=== PATIENT | male | born 1980 | race Caucasian/White ===

== ENCOUNTER 2018-02-25 09:14 | Emergency (ER) | payer OTHER ==
[2018-02-25 09:31] VITALS: BP 121/90; PULSE 76; TEMP 98.5; BMI 23.5
[2018-02-25] MEDS ORDERED: DIPHTH,PERTUSS(ACELL),TET 0.5 ML DISP.SYRIN IM ONE (10:04)
--- NOTE | 2018-02-25 10:08 | PDOC ---
History of Present Illness - General Chief Complaint: Puncture Wound Stated Complaint: INJURY Time Seen by Provider: 02/25/18 10:02 History Source: Patient Exam Limitations: No Limitations - History of Present Illness Initial Comments: 02/25/18 10:05 CHIEF COMPLAINT: Nail went into volar aspect of left fifth finger yesterday. HISTORY OF PRESENT ILLNESS: Patient is a 37-year-old male, no significant medical history currently on no medication presents for evaluation of swelling to left fifth finger patient reports yesterday was woodworking and a nail went into the dorsal surface of the left fifth finger he pulled the nail out immediately had pain to area with range of motion woke up this morning with swelling. Is requesting x-ray of the left fracture Occurred: reports: yesterday Severity: reports: moderate Upper Extremity Pain Location: left: 5th finger Past History - Past Medical History Allergies/Adverse Reactions: Allergies Allergy/AdvReac Type Severity Reaction Status Date / Time No Known Allergies Allergy Verified 02/25/18 09:26 Home Medications: Ambulatory Orders Cephalexin [Keflex] 500 mg PO QID #28 capsule 02/25/18 COPD: No Other medical history: DENIES. - Suicide/Smoking/Psychosocial Hx Smoking History: Never smoked Review of Systems - Review of Systems Constitutional: No: Symptoms Reported Respiratory: No: Symptoms reported Cardiac (ROS): No: Symptoms Reported Musculoskeletal: Yes: Joint Pain, Joint Swelling Integumentary: Yes: Erythema, Other (edema to left fifth finger. Good range of motion). No: Bruising Neurological: No: Paresthesia, Tingling, Tremors Hematologic/Lymphatic: No: Symptoms Reported All Other Systems: Reviewed and Negative *Physical Exam - Vital Signs Last Vital Signs Temp Pulse Resp BP Pulse Ox 98.5 F 76 19 121/90 100 02/25/18 09:26 02/25/18 09:26 02/25/18 09:26 02/25/18 09:26 02/25/18 09:26 - Physical Exam General Appearance: Yes: Appropriately Dressed. No: Apparent Distress Respiratory/Chest: positive: Lungs Clear, Normal Breath Sounds Cardiovascular: positive: Regular Rhythm, Regular Rate Musculoskeletal: negative: Decreased Range of Motion Extremity: positive: Swelling, Erythema (to left fifth finger) Integumentary: positive: Erythema, Swelling. negative: Ecchymosis, Bruising Neurologic: positive: Alert, Normal Mood/Affect ED Treatment Course - RADIOLOGY Radiology Studies Ordered: Category Date Time Status FINGER(S) LEFT [RAD] Stat Radiology 02/25/18 10:04 Ordered Medical Decision Making - Medical Decision Making 02/25/18 10:07 A/P: Patient with puncture wound from nail to dorsum of left fifth finger woke up today with swelling of finger will perform x-ray of finger to rule out chip fracture. There is edema, mild erythema with no induration, no streaking. 02/25/18 15:29 Date demonstrated deformity to the midshaft of the proximal found to the left fifth finger. Consistent with puncture wound site of injury, read as old injury there is erythema surrounding area, patient was discharged on Keflex, finger splint placed on. To follow-up with Dr. Fong if pain persists in one week after antibiotic therapy and splinting. *DC/Admit/Observation/Transfer Diagnosis at time of Disposition: Puncture wound Finger fracture, left Qualifiers: Encounter type: initial encounter Finger: little finger Fracture type: closed Phalanx: middle Fracture alignment: nondisplaced Qualified Code(s): S62.657A - Nondisplaced fracture of medial phalanx of left little finger, initial encounter for closed fracture - Discharge Dispostion Disposition: HOME Condition at time of disposition: Stable Admit: No - Prescriptions Prescriptions: Cephalexin [Keflex] 500 mg PO QID #28 capsule - Referrals Referrals: ON STAFF,NOT [Primary Care Provider] - Alonso Fong MD [Staff Physician] - - Patient Instructions Additional Instructions: 1. Please return to the emergency department with any redness, swelling, increased pain, or any other concerns. 2. Keep splint on. 3. Please follow up in the office of Dr. Fong within a week if pain persists. 4. No weightbearing 5. Ice and elevate when at rest. 6. Motrin for pain - Post Discharge Activity Forms/Work/School Notes: Back to Work
== END 2018-02-25 11:00 | disposition home or self-care (01) ==
LOC: JERFT 09:14
PROC: 3E0234Z Introduction of Serum, Toxoid and Vaccine into Muscle, Percutaneous Approach (ICD-10-PCS; principal; 2018-02-25)
DX: S61.237A Puncture wound without foreign body of left little finger without damage to nail, initial encounter (principal); W45.0XXA Nail entering through skin, initial encounter; Y93.89 Activity, other specified; Y92.89 Other specified places as the place of occurrence of the external cause; Y99.8 Other external cause status
CPT/HCPCS: 73140-TC-LT-FY; 90715; 99281-25

== ENCOUNTER 2018-05-28 12:28 | Emergency (ER) | payer OTHER ==
[2018-05-28 12:37] VITALS: BMI 23.5
[2018-05-28] MEDS ORDERED: SODIUM CHLORIDE 1,000 ML IV STA (12:50)
[2018-05-28] MEDS ORDERED: LORazepam 1 MG TABLET PO ONE (12:50)
[2018-05-28] MEDS ORDERED: LORazepam 0.5 MG TABLET ONE (12:55)
--- NOTE | 2018-05-28 12:59 | PDOC ---
History of Present Illness - General Chief Complaint: Psychiatric Stated Complaint: ANXIETY/NUMBNESS Time Seen by Provider: 05/28/18 12:39 - History of Present Illness Initial Comments: 05/28/18 13:03 "The patient is a 38 year old male, with a significant past medical history of panic attacks, who presents to the emergency department for anxiety and arm and leg numbness while at work earlier today. The patient reports he has had increased stress at work. Today while at work, he began to experience numbness in both his right and left arms and legs. His boss called EMS, and pt states that he started to get very anxious. Patient reports his symptoms are similar to when hes had panic attacks in the past, for which he typically takes Lorazepam. Patient denies any associated chest pain, shortness of breath, diaphoresis, or palpitations. He denies any fever, chills, headache, lightheadedness, or changes in vision. He denies any abdominal pain, nausea, or vomiting. Pt states that his symptoms have resolved since arriving to ER. Patient reports his anxiety is typically triggered by stress, travel, or confined spaces. Patient reports he has been evaluated by a neurologist in the past for his numbness and had normal head CT and MRI. Pt has not seen a psychiatrist. Allergies: NKDA Past Surgical History: None reported Social History: Non smoker. No ETOH or recreational drug use. " Past History - Past Medical History Allergies/Adverse Reactions: Allergies Allergy/AdvReac Type Severity Reaction Status Date / Time No Known Allergies Allergy Verified 05/28/18 12:33 Home Medications: Ambulatory Orders Cephalexin [Keflex] 500 mg PO QID #28 capsule 02/25/18 COPD: No - Suicide/Smoking/Psychosocial Hx Smoking History: Never smoked Have you smoked in the past 12 months: No Information on smoking cessation initiated: No Hx Alcohol Use: No Drug/Substance Use Hx: No Substance Use Type: None Review of Systems - Review of Systems Comments:: 05/28/18 13:10 "GENERAL/CONSTITUTIONAL: No fever or chills. No weakness. HEAD, EYES, EARS, NOSE AND THROAT: No change in vision. No ear pain or discharge. No sore throat. CARDIOVASCULAR: No chest pain or shortness of breath. RESPIRATORY: No cough, wheezing, or hemoptysis. GASTROINTESTINAL: No nausea, vomiting, diarrhea or constipation. GENITOURINARY: No dysuria, frequency, or change in urination. MUSCULOSKELETAL: No joint or muscle swelling or pain. No neck or back pain. SKIN: No rash NEUROLOGIC: +bilateral leg and arm weakness, No headache, loss of consciousness. ENDOCRINE: No increased thirst. No abnormal weight change. HEMATOLOGIC/LYMPHATIC: No anemia, easy bleeding, or history of blood clots. ALLERGIC/IMMUNOLOGIC: No hives or skin allergy." *Physical Exam - Vital Signs Last Vital Signs Temp Pulse Resp BP Pulse Ox 98.5 F 86 16 142/95 98 05/28/18 12:34 05/28/18 12:34 05/28/18 12:34 05/28/18 12:34 05/28/18 12:34 - Physical Exam Comments: 05/28/18 12:59 "GENERAL: Awake, alert, and fully oriented, in no acute distress. HEAD: No signs of trauma EYES: PERRLA, EOMI, sclera anicteric, conjunctiva clear ENT: Auricles normal inspection, hearing grossly normal, nares patent, oropharynx clear without exudates. Moist mucosa NECK: Nontender, no stepoffs, Normal ROM, supple, no lymphadenopathy, JVD, or masses LUNGS: Breath sounds equal, clear to auscultation bilaterally. No wheezes, and no crackles HEART: Regular rate and rhythm, normal S1 and S2, no murmurs, rubs or gallops ABDOMEN: Soft, nontender, normoactive bowel sounds. No guarding, no rebound. No masses EXTREMITIES: Normal range of motion, no edema. No clubbing or cyanosis. No cords, erythema, or tenderness NEUROLOGICAL: Cranial nerves II through XII intact. 5/5 strength and sensation in all extremities, Normal speech, normal gait, normal cerebellar function SKIN: Warm, Dry, normal turgor, no rashes or lesions noted. " ED Treatment Course - LABORATORY CBC & Chemistry Diagram: 05/28/18 13:15 05/28/18 13:15 Medical Decision Making - Medical Decision Making 05/28/18 12:57 38 M with bilateral upper and lower extremity paresthesias, now resolved. Likely anxiety related, as pt has had similar previous episodes and reports increased stress recently. Pt with non-focal neuro exam at this time. - Labs - IVF, ativan 05/28/18 15:13 Labs wnl Pt reassessed - now feels much better. Pt is well appearing, with normal vitals. Clinically stable for DC at this time. I discussed the physical exam findings, ancillary test results and final diagnoses with the patient. I answered all of the patient's questions. The patient was satisfied with the care received and felt comfortable with the discharge plan and treatment plan. The patient agrees to follow up with the primary care physician within 24-72 hours. *DC/Admit/Observation/Transfer Diagnosis at time of Disposition: Paresthesias, Panic attack, Anxiety - Discharge Dispostion Disposition: HOME - Referrals Referrals: ON STAFF,NOT [Primary Care Provider] - Zana Stanford MD [Staff Physician] - Pedro Byrd MD [Staff Physician] - - Patient Instructions Printed Discharge Instructions: DI for Numbness/tingling Additional Instructions: Call the numbers provided to make appointments with our neurologist and psychiatrist. If you experience worsening numbness, weakness, chest pain, shortness of breath , or any other concerning symptoms, return to the ER immediately. - Post Discharge Activity - Attestations Physician Attestion: 05/28/18 15:15 I, Dr. Marcial Bhat MD, attest that this document has been prepared under my direction and personally reviewed by me in its entirety. I further attest, that it accurately reflects all work, treatment, procedures and medical decision -making performed by me.
[2018-05-28 13:31] LABS: BASO % 0.5 % (0-2.0); EOS % 0.9 % (0-4.5); HEMATOCRIT 46.4 % (35.4-49); LYMPH % 19.5 % (8-40); MCH 32.6 pg (25.7-33.7); MCHC 34.5 g/dl (32.0-35.9); MEAN CELL VOLUME 94.3 fl (80-96); MONO % 7.4 % (3.8-10.2); NEUT % 71.7 % (42.8-82.8); PLATELET COUNT 190 K/MM3 (134-434); RBC 4.92 M/mm3 (4.00-5.60); RDW 12.8 % (11.9-15.9); WHITE BLOOD COUNT 5.4 K/mm3 (4.0-10.0)
[2018-05-28 13:57] LABS: ALBUMIN 4.3 g/dl (3.4-5.0); ALK PHOS 51 U/L (45-117); ANION GAP 6 (8-16); BILIRUBIN,TOTAL 1.2 mg/dL (0.2-1.0); BLOOD UREA NITROGEN 12 mg/dL (7-18); CALCIUM 9.2 mg/dL (8.5-10.1); CHLORIDE 103 mmol/L (98-107); CO2 30 mmol/L (21-32); CREATININE 0.9 mg/dL (0.7-1.3); GLUCOSE,RANDOM 93 mg/dL (74-106); MAGNESIUM 1.9 mg/dL (1.8-2.4); PHOSPHOROUS 2.2 mg/dL (2.5-4.9); POTASSIUM 3.8 mmol/L (3.5-5.1); SGOT/AST 23 U/L (15-37); SGPT/ALT 31 U/L (12-78); SODIUM 139 mmol/L (136-145); TOT PROT 7.6 g/dl (6.4-8.2)
[2018-05-28 15:29] VITALS: BP 138/90; PULSE 80; TEMP 98.1
== END 2018-05-28 15:35 | disposition home or self-care (01) ==
LOC: JER 12:28
PROC: 3E0337Z Introduction of Electrolytic and Water Balance Substance into Peripheral Vein, Percutaneous Approach (ICD-10-PCS; principal; 2018-05-28)
DX: R00.2 Palpitations (principal); F41.0 Panic disorder [episodic paroxysmal anxiety]
CPT/HCPCS: 36415; 80053; 83735; 84100; 85025; 99283-25; J7030

== ENCOUNTER 2021-01-06 16:50 | Emergency (ER) | payer OTHER, BC ==
[2021-01-06 17:15] VITALS: BP 153/92; PULSE 109; TEMP 97.2; BMI 23.6
[2021-01-06] MEDS ORDERED: TETRACAINE 0.5% HCL 0.6ML DROPPER.BOTTLE OS ONE (18:18)
[2021-01-06] MEDS ORDERED: FLUORESCEIN NA 1 EA STRIP ONE (18:25)
[2021-01-06] MEDS ORDERED: TETRACAINE 0.5% OPHTH SOLN 2 ML BOTTLE ONE (18:25)
== END 2021-01-06 19:19 | disposition home or self-care (01) ==
LOC: JER 16:50
DX: S05.92XA Unspecified injury of left eye and orbit, initial encounter (principal)
CPT/HCPCS: 99284-25